=== PATIENT | male | born 1970 | race Caucasian/White ===

== ENCOUNTER 2017-10-10 13:33 | Outpatient (CLI) | payer OTHER ==
[2017-09-27 16:08] VITALS: O2SAT 95
== END 2017-10-10 13:34 | disposition home or self-care (01) | DRG 558 ==
LOC: CONVCARE 13:33
PROVIDERS: ATTEND Orthopaedic Surgery
DX: M75.41 Impingement syndrome of right shoulder (principal)
CPT/HCPCS: 73030

== ENCOUNTER 2017-10-12 13:17 | Day surgery (SDC) | payer OTHER ==
[2017-10-12] MEDS ORDERED: BUPIVACAINE HCL 0.25% MPF 30 ML SOL INFIL ONE (13:53)
[2017-10-12] MEDS: MIDAZOLAM 2 MG/2 ML SOL ONE ×2 (14:00→14:07)
[2017-10-12] MEDS: FENTANYL 100MCG/2ML SOL ONE ×2 (14:00→14:07)
[2017-10-12] MEDS: DEXAMETHASONE SOD PHOS PF 10 MG/ML SOL IJ ONE ×2 (14:04→14:12)
[2017-10-12 14:41] VITALS: BP 136/96; PULSE 65; RESP 16; TEMP 97.7; O2SAT 97
== END 2017-10-12 15:10 | disposition home or self-care (01) | DRG 552 ==
LOC: SURG 13:17
PROVIDERS: ATTEND Nurse Anesthetist, Certified Registered
DX: M51.17 Intervertebral disc disorders with radiculopathy, lumbosacral region (principal)
CPT/HCPCS: J2250; J3010; J1100